=== PATIENT | male | born 1990 | race Hispanic/Latino ===

== ENCOUNTER 2019-08-28 07:41 | Emergency (ER) | payer SELFPAY ==
[2019-08-28] MEDS ORDERED: AMOXICILLIN 500 MG CAPSULE PO ONE (08:49)
[2019-08-28] MEDS ORDERED: ERYTHROMYCIN BASE 0.5% OPHTH OINT 1 GM TUBE ONE (08:49)
== END 2019-08-28 09:02 | disposition home or self-care (01) ==
LOC: EDH 07:41
DX: H00.031 Abscess of right upper eyelid (principal); R03.0 Elevated blood-pressure reading, without diagnosis of hypertension; Z90.49 Acquired absence of other specified parts of digestive tract; Z72.0 Tobacco use